=== PATIENT | female | born 1935 | race Hispanic/Latino ===

== ENCOUNTER 2017-11-02 09:33 | Outpatient (CLI) | payer MEDICARE ==
[2017-11-02] MEDS ORDERED: XYLOCAINE TOPICAL 4% TP ONE (14:00)
== END 2017-11-02 09:34 | disposition home or self-care (01) ==
LOC: WOUND 09:33
PROVIDERS: ATTEND Surgery
DX: I70.245 Atherosclerosis of native arteries of left leg with ulceration of other part of foot (principal); E11.621 Type 2 diabetes mellitus with foot ulcer; I10 Essential (primary) hypertension; K21.9 Gastro-esophageal reflux disease without esophagitis; F03.90 Unspecified dementia, unspecified severity, without behavioral disturbance, psychotic disturbance, mood disturbance, and anxiety; Z90.710 Acquired absence of both cervix and uterus; Z86.718 Personal history of other venous thrombosis and embolism; Z89.619 Acquired absence of unspecified leg above knee
CPT/HCPCS: 11042; 11045; G0463

== ENCOUNTER 2017-11-09 10:17 | Outpatient (CLI) | payer MEDICARE ==
[2017-11-09] MEDS ORDERED: NACL 0.9% 500 ML IR ONE (11:34)
[2017-11-09] MEDS ORDERED: XYLOCAINE TOPICAL 4% TP ONE ×2 (11:34→12:53)
[2017-11-09] MEDS ORDERED: NACL 0.9% IR ONE (12:53)
== END 2017-11-09 10:18 | disposition home or self-care (01) ==
LOC: WOUND 10:17
PROVIDERS: ATTEND Surgery
DX: E11.621 Type 2 diabetes mellitus with foot ulcer (principal); L97.821 Non-pressure chronic ulcer of other part of left lower leg limited to breakdown of skin; I10 Essential (primary) hypertension; K21.9 Gastro-esophageal reflux disease without esophagitis; F03.90 Unspecified dementia, unspecified severity, without behavioral disturbance, psychotic disturbance, mood disturbance, and anxiety; Z90.710 Acquired absence of both cervix and uterus; Z86.718 Personal history of other venous thrombosis and embolism; Z89.619 Acquired absence of unspecified leg above knee

== ENCOUNTER 2017-11-23 10:46 | Outpatient (CLI) | payer MEDICARE ==
[2017-11-23] MEDS ORDERED: XYLOCAINE TOPICAL 4% TP ONE ×2 (11:06→11:12)
== END 2017-11-23 10:47 | disposition home or self-care (01) ==
LOC: WOUND 10:46
PROVIDERS: ATTEND Surgery
DX: E11.622 Type 2 diabetes mellitus with other skin ulcer (principal); L97.821 Non-pressure chronic ulcer of other part of left lower leg limited to breakdown of skin; K21.9 Gastro-esophageal reflux disease without esophagitis; I10 Essential (primary) hypertension; F03.90 Unspecified dementia, unspecified severity, without behavioral disturbance, psychotic disturbance, mood disturbance, and anxiety; Z86.718 Personal history of other venous thrombosis and embolism; Z89.619 Acquired absence of unspecified leg above knee; Z90.710 Acquired absence of both cervix and uterus

== ENCOUNTER 2017-12-15 11:01 | Outpatient (CLI) | payer MEDICARE | END 2017-12-15 11:02 | disposition home or self-care (01) | LOC: WOUND 11:01 | PROVIDERS: ATTEND Surgery | DX: T87.89 Other complications of amputation stump (principal); E11.622 Type 2 diabetes mellitus with other skin ulcer; K21.9 Gastro-esophageal reflux disease without esophagitis; I10 Essential (primary) hypertension; F03.90 Unspecified dementia, unspecified severity, without behavioral disturbance, psychotic disturbance, mood disturbance, and anxiety; Z86.718 Personal history of other venous thrombosis and embolism; Z89.619 Acquired absence of unspecified leg above knee; Z90.710 Acquired absence of both cervix and uterus; Y83.5 Amputation of limb(s) as the cause of abnormal reaction of the patient, or of later complication, without mention of misadventure at the time of the procedure | CPT/HCPCS: 99215; G0463 ==

== ENCOUNTER 2018-01-21 00:26 | Emergency (ER) | payer MEDICARE ==
[2018-01-21 01:13] LABS: Basophils % (Auto) 0.2 % (0.0-1.8); Eosinophils % (Auto) 0.5 % (0.0-4.3); Hematocrit 28.4 % (30.3-42.9); Hemoglobin 10.4 gm/dl (10.1-14.3); Lymphocytes % (Auto) 20.7 % (13.4-35.0); Mean Corpuscular HGB Conc 37 % (30-34); Mean Corpuscular Hemoglobin 33 pg (28-32); Mean Corpuscular Volume 90 fl (79-97); Monocytes # (Auto) 0.4 K/mm3 (0.0-0.8); Monocytes % (Auto) 8.9 % (0.0-7.3); Platelet Count 184 K/mm3 (140-440); Red Blood Count 3.15 M/mm3 (3.65-5.03); Red Cell Distribution Width 16.9 % (13.2-15.2)
[2018-01-21 01:27] LABS: Alanine Aminotransferase 7 units/L (7-56); Albumin 2.3 g/dL (3.9-5); BUN/Creatinine Ratio 40; Blood Urea Nitrogen 16 mg/dL (7-17); Calcium 9.7 mg/dL (8.4-10.2); Hemolysis Index 0; Lipase 33 units/L (13-60)
[2018-01-21 02:14] VITALS: BP 145/69
[2018-01-21] MEDS: K-DUR PO ONE ×2 (03:18→03:19)
--- NOTE | 2018-01-21 04:08 | Emergency Department Report ---
ED General Adult HPI - General Chief complaint: Altered Mental Status Stated complaint: ABDOMINAL PAIN Time Seen by Provider: 01/21/18 00:54 Source: patient, EMS, RN notes reviewed Mode of arrival: Stretcher Limitations: Physical Limitation - History of Present Illness Initial comments: Pt arrives via EMS from [facility]. She reports intermittent bilateral lower abd pain x 4 months. Has had decreased appetite at baseline. Pt was sent to the ER by her ECF for eval. No new medications. Severity scale (0 -10): 0 - Related Data Home Medications Medication Instructions Recorded Confirmed Last Taken Ascorbic Acid [Vitamin C with Norma 500 mg PO DAILY 04/30/17 11/22/17 06/29/17 08 :29 Hips] Gabapentin [Neurontin] 300 mg PO QHS 10/18/17 11/22/17 Unknown Meloxicam [Mobic] 7.5 mg PO BID 10/18/17 11/22/17 Unknown risperiDONE [RisperDAL] 0.25 mg PO QDAY 10/18/17 11/22/17 Unknown Previous Rx's Medication Instructions Recorded Last Taken Type Ergocalciferol [Vitamin D2] 1 cap PO QWEEK #30 03/19/17 06/29/17 08:29 Rx Folic Acid [Folvite] 1 mg PO QDAY #30 03/19/17 06/29/17 08:29 Rx HYDROcodone/APAP 10-325 [[place] 1 each PO Q6H PRN #30 tablet 03/19/17 06/29/17 08 :29 Rx 10-325 mg TAB] Levothyroxine [Synthroid] 75 mcg FEEDTUBE DAILY@0600 #30 03/19/17 06/29/17 08: 29 Rx Pentoxifylline [TRENtal] 400 mg PO Q8HR #30 tablet 03/19/17 06/29/17 08:29 Rx Sennosides [Senna] 8.6 mg PO QHS #30 03/19/17 06/29/17 08:29 Rx Doxycycline [Vibramycin CAP] 100 mg PO Q12HR #20 capsule 10/28/17 Unknown Rx Allergies Allergy/AdvReac Type Severity Reaction Status Date / Time No Known Allergies Allergy Verified 11/22/17 11:36 ED Review of Systems ROS: Stated complaint: ABDOMINAL PAIN Other details as noted in HPI Comment: All other systems reviewed and negative Gastrointestinal: abdominal pain ED Past Medical Hx - Past Medical History Previous Medical History?: Yes Hx Hypertension: Yes Hx Diabetes: Yes Hx Deep Vein Thrombosis: Yes Hx GERD: Yes Hx Renal Disease: Yes (Stage 3) Hx Psychiatric Treatment: Yes Hx Dementia: Yes Additional medical history: chronic leg ulcers - Surgical History Past Surgical History?: Yes Hx Cholecystectomy: Yes Additional Surgical History: Hysterectomy - Social History Smoking Status: Never Smoker Substance Use Type: None - Medications Home Medications: Home Medications Medication Instructions Recorded Confirmed Last Taken Type Ergocalciferol [Vitamin D2] 1 cap PO QWEEK #30 03/19/17 11/22/17 06/29/17 08:29 Rx Folic Acid [Folvite] 1 mg PO QDAY #30 03/19/17 11/22/17 06/29/17 08:29 Rx HYDROcodone/APAP 10-325 [[place] 1 each PO Q6H PRN #30 tablet 03/19/17 11/22/17 08:29 Rx 10-325 mg TAB] Levothyroxine [Synthroid] 75 mcg FEEDTUBE DAILY@0600 #30 03/19/17 11/22/1706/29 08:29 Rx Pentoxifylline [TRENtal] 400 mg PO Q8HR #30 tablet 03/19/17 11/22/17 06/29/17 08 :29 Rx Sennosides [Senna] 8.6 mg PO QHS #30 03/19/17 11/22/17 06/29/17 08:29 Rx Ascorbic Acid [Vitamin C with Norma 500 mg PO DAILY 04/30/17 11/22/17 06/29/17 08 :29 History Hips] Gabapentin [Neurontin] 300 mg PO QHS 10/18/17 11/22/17 Unknown History Meloxicam [Mobic] 7.5 mg PO BID 10/18/17 11/22/17 Unknown History risperiDONE [RisperDAL] 0.25 mg PO QDAY 10/18/17 11/22/17 Unknown History Doxycycline [Vibramycin CAP] 100 mg PO Q12HR #20 capsule 10/28/17 11/22/17 Unknown Rx ED Physical Exam - General Limitations: Physical Limitation General appearance: alert, in no apparent distress - Head Head exam: Present: atraumatic, normocephalic - Eye Eye exam: Present: normal appearance - ENT ENT exam: Present: mucous membranes moist - Neck Neck exam: Present: normal inspection - Respiratory Respiratory exam: Present: normal lung sounds bilaterally. Absent: respiratory distress - Cardiovascular Cardiovascular Exam: Present: regular rate, normal rhythm. Absent: systolic murmur, diastolic murmur, rubs, gallop - GI/Abdominal GI/Abdominal exam: Present: soft, normal bowel sounds, other (peg tube c/d/i). Absent: distended, tenderness, guarding, rebound, rigid - Extremities Exam Extremities exam: Present: normal inspection - Back Exam Back exam: Present: normal inspection, other (bilateral AKAs) - Neurological Exam Neurological exam: Present: alert, other (oriented to person anad place) - Psychiatric Psychiatric exam: Present: normal affect, normal mood - Skin Skin exam: Present: warm, dry, intact, normal color. 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 VSS. Pt is well appearing. No abd pain appreciated on exam. Labs show mild hypokalemia of 3.2 , given oral supplement. Pt wanted to leave before getting her CT scan or providing a urine sample. I talked to her about the increased risk. She admitted that she understood. At this time, I determined that the patient had capacity to make that decision. Low suspicion for emergent finding given pt's well appearance and unremarkable labs. She is cleared for dc back to her ecf. - Differential Diagnosis sepsis, uti, pna, diverticulitis, constipation, malignancy Critical care attestation.: If time is entered above; I have spent that time in minutes in the direct care of this critically ill patient, excluding procedure time. ED Disposition Clinical Impression: Encounter for medical screening examination Disposition: DC-01 TO HOME OR SELFCARE Is pt being admited?: No Does the pt Need Aspirin: No Condition: Stable Additional Instructions: Please follow up with your family doctor about your intermittent abdominal pain and decreased appetite since the urine and ct scan weren't finished at the ER. Referrals: PRIMARY CARE, [Primary Care Provider] - 3-5 Days
== END 2018-01-21 05:06 | disposition home or self-care (01) ==
LOC: ED 00:26
DX: R10.31 Right lower quadrant pain (principal); R10.32 Left lower quadrant pain; I10 Essential (primary) hypertension; E11.9 Type 2 diabetes mellitus without complications; K21.9 Gastro-esophageal reflux disease without esophagitis; F03.90 Unspecified dementia, unspecified severity, without behavioral disturbance, psychotic disturbance, mood disturbance, and anxiety; L97.909 Non-pressure chronic ulcer of unspecified part of unspecified lower leg with unspecified severity; Z86.718 Personal history of other venous thrombosis and embolism; Z90.49 Acquired absence of other specified parts of digestive tract; Z90.710 Acquired absence of both cervix and uterus
CPT/HCPCS: 36415; 80053; 82140; 83690; 85025; 99283